=== PATIENT | female | born 1955 | race American Indian/Alaskan Native ===

== ENCOUNTER 2018-05-21 13:49 | Outpatient (CLI) | payer BC | END 2018-05-21 13:50 | disposition home or self-care (01) | LOC: LAB 13:49 | PROVIDERS: ATTEND Internal Medicine | DX: E11.9 Type 2 diabetes mellitus without complications (principal); E78.00 Pure hypercholesterolemia, unspecified | CPT/HCPCS: 36415; 83036 ==

== ENCOUNTER 2018-11-24 09:27 | Outpatient (CLI) | payer BC ==
--- NOTE | 2018-11-24 10:55 | Ultrasound Report ---
ULTRASOUND THYROID SCAN History: Iodine deficiency related diffuse goiter. Comparison: None. Findings: The thyroid gland is normal size, contour and echotexture. No evidence for enlargement or suspicious mass/cyst. No cervical adenopathy. Impression: Normal thyroid.
== END 2018-11-24 09:28 | disposition home or self-care (01) ==
LOC: US 09:27
PROVIDERS: ATTEND Internal Medicine
DX: E01.0 Iodine-deficiency related diffuse (endemic) goiter (principal); E78.00 Pure hypercholesterolemia, unspecified; Z90.49 Acquired absence of other specified parts of digestive tract
CPT/HCPCS: 76536

== ENCOUNTER 2019-04-02 08:26 | Outpatient (CLI) | payer BC ==
[2019-04-02 08:49] LABS: Basophils % (Auto) 0.5 % (0.0-1.8); Eosinophils # (Auto) 0.1 K/mm3 (0.0-0.4); Eosinophils % (Auto) 1.9 % (0.0-4.3); Hematocrit 42.2 % (30.3-42.9); Hemoglobin 14.2 gm/dl (10.1-14.3); Lymphocytes % (Auto) 28.1 % (13.4-35.0); Mean Corpuscular HGB Conc 34 % (30-34); Mean Corpuscular Volume 87 fl (79-97); Monocytes # (Auto) 0.5 K/mm3 (0.0-0.8); Monocytes % (Auto) 6.7 % (0.0-7.3); Platelet Count 233 K/mm3 (140-440); Red Blood Count 4.83 M/mm3 (3.65-5.03); Red Cell Distribution Width 13.6 % (13.2-15.2)
[2019-04-02 09:05] LABS: Alanine Aminotransferase 20 units/L (7-56); Albumin 4.7 g/dL (3.9-5); BUN/Creatinine Ratio 20; Blood Urea Nitrogen 10 mg/dL (7-17); Calcium 9.5 mg/dL (8.4-10.2); HDL Cholesterol 55 mg/dL (40-59); Hemolysis Index 6; LDL Cholesterol,Direct 129 mg/dL (50-130)
[2019-04-02 09:11] LABS: Creatinine,Urine 70.4 mg/dL (0.1-20.0)
[2019-04-02 10:08] LABS: Free T4 (Free Thyroxine) 0.95 ng/dL (0.76-1.46)
== END 2019-04-02 08:27 | disposition home or self-care (01) ==
LOC: LAB 08:26
PROVIDERS: ATTEND Internal Medicine
DX: Z13.0 Encounter for screening for diseases of the blood and blood-forming organs and certain disorders involving the immune mechanism (principal); E78.2 Mixed hyperlipidemia; E01.0 Iodine-deficiency related diffuse (endemic) goiter; E78.00 Pure hypercholesterolemia, unspecified
CPT/HCPCS: 36415; 80053; 80061; 82043; 83036; 84439; 84443; 85025

== ENCOUNTER 2019-08-02 11:53 | Outpatient (CLI) | payer BC ==
[2019-08-02 12:31] LABS: Basophils % (Auto) 0.5 % (0.0-1.8); Eosinophils # (Auto) 0.2 K/mm3 (0.0-0.4); Eosinophils % (Auto) 2.4 % (0.0-4.3); Hematocrit 40.2 % (30.3-42.9); Hemoglobin 13.5 gm/dl (10.1-14.3); Lymphocytes # (Auto) 2.1 K/mm3 (1.2-5.4); Lymphocytes % (Auto) 30.8 % (13.4-35.0); Mean Corpuscular HGB Conc 34 % (30-34); Mean Corpuscular Volume 86 fl (79-97); Monocytes # (Auto) 0.6 K/mm3 (0.0-0.8); Monocytes % (Auto) 8.1 % (0.0-7.3); Platelet Count 205 K/mm3 (140-440); Red Blood Count 4.68 M/mm3 (3.65-5.03); Red Cell Distribution Width 13.2 % (13.2-15.2)
[2019-08-02 12:56] LABS: BUN/Creatinine Ratio 26; Blood Urea Nitrogen 13 mg/dL (7-17); Calcium 9.5 mg/dL (8.4-10.2); Hemolysis Index 4
--- NOTE | 2019-08-02 13:41 | XRay Report ---
CHEST 2 VIEWS INDICATION: R05)COUGH/. COMPARISON: None. FINDINGS: Support devices: None. Heart: Within normal limits. Pulmonary vasculature: Normal. Lungs/pleura: Lungs are normally expanded and clear except for a few tiny calcified granulomata. No a irspace disease or pleural effusion. No pneumothorax. Additional findings: Dextroscoliosis and exaggerated thoracic kyphosis. No spine fracture. IMPRESSION: No acute cardiopulmonary process. Old granulomatous disease. Signer Name: Donnell Urrutia MD Signed: 08/02/2019 1:37 PM Workstation Name: [id number]
--- NOTE | 2019-08-02 14:29 | XRay Report ---
Thoracic spine, 2 views INDICATION: M54.6)Pain in thoracic spine. COMPARISON: None. IMPRESSION: There is mild dextro curvature in the mid to lower thoracic spine. Moderate degenerative disc disease is noted in the mid thoracic spine. No evidence for compression deformity, subluxation or bone lesion. No acute osseous or soft tissue abnormality. Signer Name: Randy aGrcia Jr, MD Signed: 08/02/2019 2:24 PM Workstation Name: [id number]
[2019-08-05 11:51] LABS: Vitamin D, 25-OH, D2 <4 ng/mL
== END 2019-08-02 11:54 | disposition home or self-care (01) ==
LOC: XRAY 11:53
PROVIDERS: ATTEND Internal Medicine
DX: M47.814 Spondylosis without myelopathy or radiculopathy, thoracic region (principal); M43.8X4 Other specified deforming dorsopathies, thoracic region; M40.294 Other kyphosis, thoracic region; R73.03 Prediabetes; E55.9 Vitamin D deficiency, unspecified; L92.8 Other granulomatous disorders of the skin and subcutaneous tissue; E78.00 Pure hypercholesterolemia, unspecified
CPT/HCPCS: 36415; 71046; 72072; 80048; 82306; 83036; 85025

== ENCOUNTER 2019-08-12 11:58 | Outpatient (CLI) | payer BC ==
--- NOTE | 2019-08-12 16:13 | Mammography Report ---
BONE DEXA CLINICAL: Postmenopausal. COMPARISON: 01/02/2015 TECHNIQUE: 3 site bone DEXA performed on an Hologic scanner. FINDINGS: The average BMD of the lumbar spine L1-L4 is 0.790g/cm squared with a T score of -2.3 and a Z score o f -1.5. This compares to 0.841g/cm squared on the last exam and represents a -6.1 % change from the [ previous baseline]. The average BMD of the left hip is 0.902 g/cm squared with a T score of -0.3and a Z score of +0.1. Th is compares to 0.921 g/cm squared on the last exam and represents a -2.0 % change from the [previous baseline]. The left femoral neck BMD is 0.703 g/cm squared with a T score of -1.3 and a Z score of -0.6. IMPRESSION: 1. WHO classification: Osteopenia with increased fracture risk based on spine and total left hip bridgett urements. 2. WHO classification Osteopenia with increased fracture risk based on left femoral neck measurements . RECOMMENDATION: Clinical correlation and routine screening. Definitions: BMD equal bone mineral density T score = BMD related to peak bone mass of young adult ([place] expressed an standard deviation) Z score = age-matched BMD expressed in SD World health organization (WHO) diagnostic criteria Normal T score greater than equal to 1 standard deviation Osteopenia T score between -1 and -2.4 standard deviation Osteoporosis T score -2.5 standard deviation or below. Note: BMD is not the only risk factor for fracture; also consider factors such as the patient's age, risk of falling, previous osteoporotic fracture, family history of osteoporotic fractures, current sm oker and low body weight. Z scores are not calculated if greater than 80 years of age. Signer Name: Donnell Urrutia MD Signed: 08/12/2019 4:09 PM Workstation Name: [id number]
== END 2019-08-12 11:59 | disposition home or self-care (01) ==
LOC: MAMMO 11:58
PROVIDERS: ATTEND Internal Medicine
DX: M85.89 Other specified disorders of bone density and structure, multiple sites (principal); R05 Cough; M54.6 Pain in thoracic spine; E78.00 Pure hypercholesterolemia, unspecified; Z78.0 Asymptomatic menopausal state
CPT/HCPCS: 77080

== ENCOUNTER 2019-08-18 07:02 | Outpatient (CLI) | payer BC ==
--- NOTE | 2019-08-19 01:54 | Treadmill Report ---
EXERCISE TREADMILL TEST Resting EKG sinus bradycardia, rate 58 beats per minute, nonspecific T-wave abnormality, abnormal ECG. Exercise test; the patient exercised for a total of 6 minutes and 38 seconds on the Melvin protocol achieving a maximum workload of 7.7 METs. Test was terminated because of fatigue and dyspnea. No chest pain. The patient's resting heart rate was 58 beats per minute and resting blood pressure was 116/69. The patient's peak heart rate was 143 beats per minute, which was 84% of the predicted maximum heart rate. Peak blood pressure was 168/81 mmHg. The patient showed nonspecific ST-T abnormalities and baseline artifact at peak exercise. However, the patient was noted to have T-wave inversion about 3 minutes into the recovery phase, the anterior and inferior leads suggesting ischemia. CONCLUSION: Moderate exercise capacity. Negative test for angina. Ischemia could not be evaluated because of the preexisting ST-T abnormalities. Suggest clinical correlation and consider nuclear stress test if indicated. JOB# [id number] KEO/AMBAR
== END 2019-08-18 07:03 | disposition home or self-care (01) ==
LOC: ECHO 07:02
PROVIDERS: ATTEND Specialist
DX: R94.31 Abnormal electrocardiogram [ECG] [EKG] (principal); E78.49 Other hyperlipidemia; Z82.49 Family history of ischemic heart disease and other diseases of the circulatory system; E11.9 Type 2 diabetes mellitus without complications
CPT/HCPCS: 93017; 93306

== ENCOUNTER 2020-02-18 09:43 | Outpatient (CLI) | payer BC ==
[2020-02-18 10:16] LABS: Basophils # (Auto) 0.1 K/mm3 (0.0-0.1); Basophils % (Auto) 0.7 % (0.0-1.8); Eosinophils # (Auto) 0.1 K/mm3 (0.0-0.4); Eosinophils % (Auto) 1.7 % (0.0-4.3); Hematocrit 43.3 % (30.3-42.9); Hemoglobin 14.3 gm/dl (10.1-14.3); Lymphocytes # (Auto) 2.2 K/mm3 (1.2-5.4); Lymphocytes % (Auto) 26.7 % (13.4-35.0); Mean Corpuscular HGB Conc 33 % (30-34); Mean Corpuscular Volume 87 fl (79-97); Monocytes # (Auto) 0.6 K/mm3 (0.0-0.8); Monocytes % (Auto) 7.1 % (0.0-7.3); Platelet Count 256 K/mm3 (140-440); Red Cell Distribution Width 13.6 % (13.2-15.2)
[2020-02-18 10:33] LABS: Bilirubin,Urine NEG (Negative); Blood,Urine NEG (Negative); Color,Urine Colorless (Yellow); Protein,Urine <15 mg/dL mg/dL (Negative); RBC,Urine < 1.0 /HPF (0.0-6.0); Urobilinogen,Urine < 2.0 mg/dL (<2.0); WBC,Urine < 1.0 /HPF (0.0-6.0)
[2020-02-18 10:51] LABS: Alanine Aminotransferase 25 units/L (7-56); Albumin 4.8 g/dL (3.9-5); BUN/Creatinine Ratio 18; Blood Urea Nitrogen 11 mg/dL (7-17); Calcium 10.4 mg/dL (8.4-10.2); Chol/HDL Ratio 2.78 %; HDL Cholesterol 64 mg/dL (40-59); Hemolysis Index 18; LDL Cholesterol,Direct 114 mg/dL (50-130)
[2020-02-18 13:56] LABS: Creatinine,Urine 20.4 mg/dL (0.1-20.0)
[2020-02-18 14:06] LABS: Microalbumin/Creatinine Ratio 58.8 ug/mg
[2020-02-21 10:43] LABS: Vitamin D, 25-OH, D2 <4 ng/mL
== END 2020-02-18 09:44 | disposition home or self-care (01) ==
LOC: LAB 09:43
PROVIDERS: ATTEND Internal Medicine
DX: Z00.00 Encounter for general adult medical examination without abnormal findings (principal); Z13.0 Encounter for screening for diseases of the blood and blood-forming organs and certain disorders involving the immune mechanism; Z12.11 Encounter for screening for malignant neoplasm of colon; E55.9 Vitamin D deficiency, unspecified; E11.9 Type 2 diabetes mellitus without complications; E78.2 Mixed hyperlipidemia
CPT/HCPCS: 36415; 80053; 80061; 81001; 82043; 82306; 83036; 85025; 87086

== ENCOUNTER 2020-08-23 20:05 | Inpatient (IN) | payer BC ==
[2020-08-23 21:26] LABS: Hematocrit 38.8 % (30.3-42.9); Hemoglobin 12.9 gm/dl (10.1-14.3); Mean Corpuscular HGB Conc 33 % (30-34); Mean Corpuscular Volume 86 fl (79-97); Platelet Count 196 K/mm3 (140-440); Red Blood Count 4.49 M/mm3 (3.65-5.03); Red Cell Distribution Width 13.3 % (13.2-15.2)
[2020-08-23 21:27] LABS: Lymphocytes % (Auto) 20.2 % (13.4-35.0)
[2020-08-23 21:28] LABS: Basophils % (Auto) 0.5 % (0.0-1.8); Lymphocytes # (Auto) 1.3 K/mm3 (1.2-5.4); Monocytes # (Auto) 0.6 K/mm3 (0.0-0.8); Monocytes % (Auto) 9.6 % (0.0-7.3)
[2020-08-23 21:43] LABS: Blood Urea Nitrogen 7 mg/dL (7-17); Calcium 9.1 mg/dL (8.4-10.2); Hemolysis Index 53
[2020-08-23 21:44] LABS: BUN/Creatinine Ratio 14
--- NOTE | 2020-08-23 21:48 | XRay Report ---
CHEST 1 VIEW INDICATION / CLINICAL INFORMATION: Covid +AMANDA. COMPARISON: 08/02/2019 FINDINGS: SUPPORT DEVICES: None. HEART / MEDIASTINUM: Stable. LUNGS / PLEURA: When compared to the prior radiograph from 08/02/2019, there is focal increased hazine ss in the lateral aspect of the left lower lung. Right lung is clear. No pneumothorax. ADDITIONAL FINDINGS: No significant additional findings. IMPRESSION: 1. Hazy infiltrative opacity in the left lower lung possibly representing developing pneumonia. Recom mend clinical correlation and continued follow-up until resolution. Signer Name: Kalia Rangel MD Signed: 08/23/2020 9:43 PM Workstation Name: [id number]
[2020-08-23] MEDS ORDERED: cefTRIAXone/NS 2 GM/100 ML 2 GM/100 ML BAG IV STA (22:11)
[2020-08-23] MEDS ORDERED: AZITHROMYCIN 500 MG in SODIUM CHLORIDE 0.9% 250ML 250 ML IV SCH (22:11)
--- NOTE | 2020-08-23 22:21 | Emergency Department Report ---
ED General Adult HPI - General Chief complaint: Medical Clearance Stated complaint: COVID EXPOSURE Time Seen by Provider: 08/23/20 20:54 Source: patient Mode of arrival: Ambulatory Limitations: No Limitations - History of Present Illness Initial comments: 65-year-old -[place]ese prediabetes female presents emergency department complaining shortness of breath cough congestion and fatigue. States she was diagnosed with COVID-19 about 6 days ago with her primary care provider and since that time has been having continued aches and pains with malaise and coryza and associated exertional dyspnea and chest discomfort off and on with no improvement. Ports no hemoptysis no hematemesis no hematochezia. No diarrhea no constipation no rashes. She is been taken over the counter Tylenol to try to alleviate her symptoms but no other treatment. She did contact her primary care provider for third time seeking further guidance for her symptoms and was advised to come to the emergency department for further evaluation and treatment options. States she was evaluated by primary care provider 2 other times with no symptomatic improvement - Related Data Allergies Allergy/AdvReac Type Severity Reaction Status Date / Time No Known Allergies Allergy Unverified 08/23/20 20:16 ED Review of Systems ROS: Stated complaint: COVID EXPOSURE Other details as noted in HPI ED Past Medical Hx - Past Medical History Previous Medical History?: Yes Hx Diabetes: Yes (Pre) Additional medical history: cholesterol - Surgical History Past Surgical History?: Yes Hx Appendectomy: Yes Additional Surgical History: Tubal - Social History Smoking Status: Never Smoker Substance Use Type: None ED Physical Exam - General Limitations: No Limitations General appearance: alert, in no apparent distress - Head Head exam: Present: atraumatic, normocephalic - Eye Eye exam: Present: normal appearance, PERRL - ENT ENT exam: Present: mucous membranes moist - Neck Neck exam: Present: normal inspection - Respiratory Respiratory exam: Absent: respiratory distress, accessory muscle use - Cardiovascular Cardiovascular Exam: Present: regular rate, normal rhythm. Absent: systolic murmur, diastolic murmur, rubs, gallop - GI/Abdominal GI/Abdominal exam: Absent: distended - Extremities Exam Extremities exam: Present: normal inspection - Back Exam Back exam: Present: normal inspection - Neurological Exam Neurological exam: Present: alert, oriented X3, CN II-XII intact - Psychiatric Psychiatric exam: Present: normal affect, normal mood - Skin Skin exam: Present: warm, dry, intact, normal color. Absent: rash ED Course Vital Signs 08/23/20 20:11 Temperature 99.2 F Pulse Rate 104 H Respiratory 18 Rate Blood Pressure 144/89 O2 Sat by Pulse 94 Oximetry - Consultations Consultation #1: 08/23/20 22:35 Discussed the case with hospitalist for admission home he came to the emergency department to evaluate the patient see his note for more detail Dr. Rapp ED Medical Decision Making - Lab Data Result diagrams: 08/23/20 21:07 08/23/20 21:07 - Radiology Data Radiology results: report reviewed [facility] [address] [place] [address] XRay Report Signed Patient: MAAME RESTREPO MR#: [id number] : 1955 Acct:[id number] Age/Sex: 65 / F ADM Date: 08/23/20 Loc: ED Attending Dr: Ordering Physician: ED MD HUONG Date of Service: 08/23/20 Procedure(s): XR chest 1V ap Accession Number(s): [id number] cc: ED DOCMD Fluoro Time In Minutes: CHEST 1 VIEW INDICATION / CLINICAL INFORMATION: Covid +AMANDA. COMPARISON: 08/02/2019 FINDINGS: SUPPORT DEVICES: None. HEART / MEDIASTINUM: Stable. LUNGS / PLEURA: When compared to the prior radiograph from 08/02/2019, there is focal increased haziness in the lateral aspect of the left lower lung. Right lung is clear. No pneumothorax. ADDITIONAL FINDINGS: No significant additional findings. IMPRESSION: 1. Hazy infiltrative opacity in the left lower lung possibly representing developing pneumonia. Recommend clinical correlation and continued follow-up until resolution. Signer Name: Karlee Rangel MD Signed: 08/23/2020 9:43 PM Workstation Name: [id number] Transcribed By: RH Dictated By: KARLEE RANGEL III Electronically Authenticated By: KARLEE RANGEL III Signed Date/Time: 08/23/202142 DD/ 40 TD/TT: - Medical Decision Making Patient presentation suspicious for COVID-19 infection patient requires admission for the symptoms including tachycardia, chest pain, shortness of breath, exertional dyspnea and exertional hypoxemia. Differential diagnosis includes other viral causes of lower respiratory tract infection, pneumonia, less likely PE, pneumothorax, primary cardiovascular causes, bacterial sepsis, other severe metabolic/ischemic derangements. Will swab for COVID-19 placed in hands precautions and admit to medicine. 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 Started her on the community-acquired pneumonia antimicrobial regimen and coronavirus cocktail and reevaluation with PCR Critical care attestation.: If time is entered above; I have spent that time in minutes in the direct care of this critically ill patient, excluding procedure time. ED Disposition Clinical Impression: Pneumonia, COVID-19, Hypoxemia Disposition: DC09 OP ADMIT IP TO THIS HOSP Is pt being admited?: Yes Does the pt Need Aspirin: No Condition: Stable Instructions: Bacterial Pneumonia (ED)
[2020-08-23 22:59] LABS: C-Reactive Protein 4.8 mg/dL (0.00-1.30)
[2020-08-23] MEDS ORDERED: cefTRIAXone/NS 2 GM/100 ML 2 GM/100 ML BAG IV ONE (23:20)
[2020-08-23] MEDS ORDERED: MAGNESIUM HYDROXIDE (MOM) ORAL LIQD UDC PO PRN (23:24)
[2020-08-23] MEDS ORDERED: ONDANSETRON 4 MG/2 ML INJ IV PRN (23:24)
[2020-08-23] MEDS ORDERED: MORPHINE 2 MG/1 ML INJ IV PRN (23:24)
--- NOTE | 2020-08-23 23:34 | History and Physical Report ---
History of Present Illness Date of examination: 08/23/20 Date of admission: 08/23/20 22:31 Chief complaint: Headache Fatigue Cough History of present illness: 65-year-old female with known history of hyperlipidemia presenting to the emergency room today complaining of cough congestion and also generalized fatigue.. She indicates she was diagnosed with COVID-19 about a week ago and since then she has been having continuous body aches and pain, exertional dyspnea and intermittent chest discomfort. Patient has been taking [id number] acetaminophen without any improvement. She eventually contacted her primary care physician who encouraged her to report to the emergency room for further evaluation. Work-up in the emergency room today reveals a left upper lobe pneumonia. Patient became slightly hypoxic with minimal exertion upon arrival in the emerge ncy room. She has been started on empiric IV antibiotics and also placed on isolation precautions. Past History Past Medical History: hyperlipidemia Past Surgical History: Other (Tubal Ligation) Social history: no significant social history Family history: no significant family history Medications and Allergies Allergies Allergy/AdvReac Type Severity Reaction Status Date / Time No Known Allergies Allergy Unverified 08/23/20 20:16 Home Medications Medication Instructions Recorded Confirmed Last Taken Type Simvastatin 40 mg PO QHS 08/24/20 08/24/20 Unknown History metFORMIN [Glucophage] 500 mg PO QDAY 08/24/20 08/24/20 Unknown History Active Meds: Active Medications Acetaminophen (Tylenol) 650 mg PO Q4H PRN PRN Reason: Pain MILD(1-3)/Fever >100.5/KHAN Enoxaparin Sodium (Enoxaparin) 40 mg SUB-Q QDAY@2200 MAYNOR; Protocol Azithromycin 500 mg/ Sodium (Chloride) 250 mls @ 250 mls/hr IV Q24HR MAYNOR; Protocol Sodium Chloride (Nacl 0.9% 1000 Ml) 1,000 mls @ 75 mls/hr IV DIRECT MAYNOR Magnesium Hydroxide (Milk Of Magnesia) 30 ml PO Q4H PRN PRN Reason: Constipation Morphine Sulfate (Morphine) 2 mg IV Q4H PRN PRN Reason: Pain, Moderate (4-6) Ondansetron HCl (Zofran) 4 mg IV Q8H PRN PRN Reason: Nausea And Vomiting Sodium Chloride (Sodium Chloride Flush Syringe 10 Ml) 10 ml IV BID MAYNOR Sodium Chloride (Sodium Chloride Flush Syringe 10 Ml) 10 ml IV PRN PRN PRN Reason: LINE FLUSH Review of Systems Constitutional: fever, chills, fatigue Ears, nose, mouth and throat: nasal congestion, no sore throat Cardiovascular: no chest pain, no palpitations Respiratory: cough, shortness of breath Gastrointestinal: no abdominal pain, no nausea, no vomiting, no diarrhea Genitourinary Female: no pelvic pain, no flank pain, no dysuria, no hematuria Musculoskeletal: no neck pain, no low back pain Integumentary: no rash, no pruritis Neurological: no headaches, no confusion Psychiatric: no anxiety, no depression Exam - Constitutional Vitals: Temp Pulse Resp BP Pulse Ox 99.2 F 104 H 18 144/89 94 08/23/20 20:11 08/23/20 20:11 08/23/20 20:11 08/23/20 20:11 08/23/20 20:11 General appearance: Present: no acute distress, well-nourished - EENT Eyes: Present: PERRL, EOM intact. Absent: scleral icterus ENT: hearing intact, clear oral mucosa, dentition normal - Neck Neck: Present: supple, normal ROM - Respiratory Respiratory effort: normal Respiratory: bilateral: diminished - Cardiovascular Rhythm: regular Heart Sounds: Present: S1 & S2. Absent: gallop, systolic murmur, diastolic murmur, rub - Extremities Extremities: no ischemia, pulses intact, pulses symmetrical, No edema, Full ROM Peripheral Pulses: within normal limits - Abdominal General gastrointestinal: Present: soft, non-tender, non-distended, normal bowel sounds. Absent: mass - Integumentary Integumentary: Absent: clear, warm, dry, rash - Musculoskeletal Musculoskeletal: strength equal bilaterally - Psychiatric Psychiatric: appropriate mood/affect, intact judgment & insight, memory intact, cooperative - Neurologic Neurologic: CNII-XII intact, no focal deficits, moves all extremities Results - Labs CBC & Chem 7: 08/23/20 21:07 08/23/20 21:07 Labs: Abnormal lab results 08/23/20 08/23/20 08/23/20 Range/Units 21:07 21:07 21:07 [place] % (Auto) 9.6 H (0.0-7.3) % D-Dimer 238.26 H (0-234) ng/mlDDU Creatinine 0.5 L (0.6-1.2) mg/dL Glucose 139 H (65-100) mg/dL Ferritin (10.0-200.0) ng/mL Lactate Dehydrogenase (91-180) units/L C-Reactive Protein (0.00-1.30) mg/dL 08/23/20 08/23/20 Range/Units 21:07 21:07 [place] % (Auto) (0.0-7.3) % D-Dimer (0-234) ng/mlDDU Creatinine (0.6-1.2) mg/dL Glucose 136 H (65-100) mg/dL Ferritin 283.9 H (10.0-200.0) ng/mL Lactate Dehydrogenase 286 H (91-180) units/L C-Reactive Protein 4.80 H (0.00-1.30) mg/dL Assessment and Plan - Patient Problems (1) Pneumonia Current Visit: Yes Status: Acute Plan to address problem: Patient placed on empiric IV antibiotics. We await culture results. (2) COVID-19 Current Visit: Yes Status: Acute Plan to address problem: Consult placed to infectious disease for evaluation and recommendation. Patient placed on isolation precautions. (3) Hypoxemia Current Visit: Yes Status: Acute Plan to address problem: We will keep O2 saturation greater or equal to 94%. We will consider placing patient on IV steroid if needed.. (4) DVT prophylaxis Current Visit: Yes Status: Acute Plan to address problem: Patient placed on subcutaneous Lovenox. (5) Full code status Current Visit: Yes Status: Acute
[2020-08-23] MEDS ORDERED: ACETAMINOPHEN 325 MG TAB ONE (23:41)
[2020-08-23] MEDS: ACETAMINOPHEN 325 MG TAB PO PRN (23:43)
[2020-08-24] MEDS: SODIUM CHLORIDE 0.9% 1000 ML 1,000 ML IV SCH ×2 (01:32→16:23)
[2020-08-24] MEDS: guaiFENesin 100 MG/5 ML ORAL LIQD PO PRN ×4 (02:49→22:44)
[2020-08-24] MEDS: ACETAMINOPHEN 325 MG TAB PO PRN ×2 (07:33→15:00)
[2020-08-24 07:58] LABS: Basophils % (Auto) 0.3 % (0.0-1.8); Eosinophils % (Auto) 0.1 % (0.0-4.3); Hematocrit 37.8 % (30.3-42.9); Hemoglobin 12.9 gm/dl (10.1-14.3); Lymphocytes # (Auto) 1.3 K/mm3 (1.2-5.4); Lymphocytes % (Auto) 23.5 % (13.4-35.0); Mean Corpuscular HGB Conc 34 % (30-34); Mean Corpuscular Volume 86 fl (79-97); Monocytes # (Auto) 0.6 K/mm3 (0.0-0.8); Monocytes % (Auto) 11.2 % (0.0-7.3); Platelet Count 191 K/mm3 (140-440); Red Blood Count 4.42 M/mm3 (3.65-5.03); Red Cell Distribution Width 13.4 % (13.2-15.2)
[2020-08-24 08:14] LABS: INR 1.05 (0.87-1.13)
[2020-08-24 08:20] LABS: Blood Urea Nitrogen 5 mg/dL (7-17); Calcium 8.6 mg/dL (8.4-10.2); Hemolysis Index 9
[2020-08-24 08:26] LABS: BUN/Creatinine Ratio 8
[2020-08-24] MEDS ORDERED: AZITHROMYCIN 500 MG in SODIUM CHLORIDE 0.9% 250ML 250 ML IV SCH (10:00)
[2020-08-24] MEDS ORDERED: cefTRIAXone/NS 2 GM/100 ML 2 GM/100 ML BAG IV SCH ×2 (10:00→22:00)
--- NOTE | 2020-08-24 14:40 | Consultation ---
History of Present Illness - Reason for Consult Consult date: 08/24/20 - History of Present Illness 65 yo F PMHx HLD presented to the hospital complaining of cough fatigue. She also reports associated myalgias and exertional dyspnea. She reports that she was diagnosed with COVID approximately 1 weeks prior to admission. She was recommended t come to the hospital by her PCP. She was noted to be hypoxic in the ER. Febrile to 101.5 with a normal white count. Currently receiving ceftriaxone and azithromycin. No cultures for review. Procalcitonin is normal. Imaging personally reviewed: CXR: LLL opacity. Review of Systems: Bold if positive, otherwise negative General: fevers, chills, rigors HEENT: visual disturbance, diplopia, eye pain Respiratory: cough, sputum, hemoptysis, shortness of breath Cardiovascular: chest pain, syncope Gastrointestinal: nausea, vomiting, diarrhea, abdominal pain Genitourinary: dysuria, hematuria, flank pain Musculoskeletal: neck pain, back pain, joint pain, edema Neurologic: headaches, seizures Hematologic: easy bruising or bleeding Endocrine: night sweats, acute weight loss Skin: rash, jaundice, redness Psychiatric: suicidal, homicidal ideation Past History Past Medical History: hyperlipidemia Past Surgical History: Other (Tubal Ligation) Social history: no significant social history Family history: no significant family history Medications and Allergies Allergies Allergy/AdvReac Type Severity Reaction Status Date / Time No Known Allergies Allergy Unverified 08/23/20 20:16 Home Medications Medication Instructions Recorded Confirmed Last Taken Type Simvastatin 40 mg PO QHS 08/24/20 08/24/20 Unknown History metFORMIN [Glucophage] 500 mg PO QDAY 08/24/20 08/24/20 Unknown History Active Meds: Active Medications Acetaminophen (Tylenol) 650 mg PO Q4H PRN PRN Reason: Pain MILD(1-3)/Fever >100.5/KHAN Last Admin: 08/24/20 07:33 Dose: 650 mg Documented by: Azithromycin (Zithromax) 500 mg PO QHS MAYNOR Stop: 08/27/20 22:01 Enoxaparin Sodium (Enoxaparin) 40 mg SUB-Q QDAY@2200 MAYNOR; Protocol Guaifenesin (Robitussin) 200 mg PO Q4H PRN PRN Reason: Cough Last Admin: 08/24/20 07:33 Dose: 200 mg Documented by: Sodium Chloride (Nacl 0.9% 1000 Ml) 1,000 mls @ 75 mls/hr IV DIRECT MAYNOR Last Admin: 08/24/20 01:32 Dose: 75 mls/hr Documented by: Ceftriaxone Sodium (Rocephin/Ns 2 Gm/100 Ml) 2 gm in 100 mls @ 200 mls/hr IV Q24HR@2200 MAYNOR; Protocol Magnesium Hydroxide (Milk Of Magnesia) 30 ml PO Q4H PRN PRN Reason: Constipation Morphine Sulfate (Morphine) 2 mg IV Q4H PRN PRN Reason: Pain, Moderate (4-6) Ondansetron HCl (Zofran) 4 mg IV Q8H PRN PRN Reason: Nausea And Vomiting Sodium Chloride (Sodium Chloride Flush Syringe 10 Ml) 10 ml IV BID MAYNOR Last Admin: 08/24/20 09:06 Dose: 10 ml Documented by: Sodium Chloride (Sodium Chloride Flush Syringe 10 Ml) 10 ml IV PRN PRN PRN Reason: LINE FLUSH Last Admin: 08/24/20 09:03 Dose: 10 ml Documented by: Physical Examination - Physical Exam Narrative exam: Physical exam deferred due to PPE conservation strategy. Please refer to primary team's note. - Constitutional Vitals: Vital Signs Temp Pulse Resp BP Pulse Ox 99.5 F 91 H 20 104/59 95 08/24/20 12:08 08/24/20 12:08 08/24/20 12:08 08/24/20 12:08 08/24/20 12:08 Temperature -Last 24 Hours Temperature 99.5 F Temperature 100.9 F Temperature 99.2 F Temperature 101.5 F Temperature 99.2 F Results - Labs CBC & Chem 7: 08/24/20 07:20 08/24/20 07:20 Labs: Abnormal lab results 08/23/20 08/23/20 08/23/20 Range/Units 21:07 21:07 21:07 [place] % (Auto) 9.6 H (0.0-7.3) % D-Dimer 238.26 H (0-234) ng/mlDDU Potassium (3.6-5.0) mmol/L BUN (7-17) mg/dL Creatinine 0.5 L (0.6-1.2) mg/dL Glucose 139 H (65-100) mg/dL POC Glucose (70-105) mg/dL Ferritin (10.0-200.0) ng/mL Lactate Dehydrogenase (91-180) units/L C-Reactive Protein (0.00-1.30) mg/dL 08/23/20 08/23/20 08/24/20 Range/Units 21:07 21:07 07:20 [place] % (Auto) 11.2 H (0.0-7.3) % D-Dimer (0-234) ng/mlDDU Potassium (3.6-5.0) mmol/L BUN (7-17) mg/dL Creatinine (0.6-1.2) mg/dL Glucose 136 H (65-100) mg/dL POC Glucose (70-105) mg/dL Ferritin 283.9 H (10.0-200.0) ng/mL Lactate Dehydrogenase 286 H (91-180) units/L C-Reactive Protein 4.80 H (0.00-1.30) mg/dL 08/24/20 08/24/20 Range/Units 07:20 12:22 [place] % (Auto) (0.0-7.3) % D-Dimer (0-234) ng/mlDDU Potassium 3.5 L D (3.6-5.0) mmol/L BUN 5 L (7-17) mg/dL Creatinine (0.6-1.2) mg/dL Glucose (65-100) mg/dL POC Glucose 150 H (70-105) mg/dL Ferritin (10.0-200.0) ng/mL Lactate Dehydrogenase (91-180) units/L C-Reactive Protein (0.00-1.30) mg/dL Assessment and Plan Cultures: None A/P: 65 yo F PMHx HLD admitted with hypoxia secondary to COVID PNA. #Acute hypoxemic respiratory failure: Likely secondary to COVID-19 infection. Currently on nasal cannula #COVID-19 pneumonia: Patient presented with a week of symptoms, chest x-ray with LLL infiltrate. Recs: -Continue Dexamethasone 6 mg IV/PO daily for 10 days -Start Remdesivir 200 mg IV q day x 1 followed by 100 mg IV q day x 4 days. Patient verbally consented. CrCl>30. Pharmacy notified. Monitor renal and hepatic function. D1 of 5. -Obtain q48h inflammatory markers - ferritin, Ddimer, CRP, LDH -Stopped antibiotics due to normal procalcitonin. -Anticoagulation per hospital protocol -Proning as able Thank you for the consult, we will continue to follow. Albina Medley MD [facility] O: [phone] F: [phone]
[2020-08-24] MEDS ORDERED: REMDESIVIR 100 MG VIAL IV ONE (16:00)
[2020-08-24] MEDS ORDERED: REMDESIVIR 200 MG in SODIUM CHLORIDE 0.9% 250ML 250 ML IV ONE (16:00)
[2020-08-24] MEDS: DEXAMETHASONE 4 MG TAB PO SCH (16:23)
[2020-08-24] MEDS: SODIUM CHLORIDE 0.9% 50 ML IVPB IV SCH (18:05)
--- NOTE | 2020-08-24 20:31 | Progress Note ---
Assessment and Plan - Patient Problems (1) Pneumonia Current Visit: Yes Status: Acute Plan to address problem: Patient placed on empiric IV antibiotics. We await culture results. (2) COVID-19 Current Visit: Yes Status: Acute Plan to address problem: Covid positive (3) Hypoxemia Current Visit: Yes Status: Acute Plan to address problem: We will keep O2 saturation greater or equal to 94%. We will consider placing patient on IV steroid if needed.. (4) DVT prophylaxis Current Visit: Yes Status: Acute Plan to address problem: Patient placed on subcutaneous Lovenox. (5) Full code status Current Visit: Yes Status: Acute Subjective Date of service: 08/24/20 Principal diagnosis: Pneumonia--rule out COVID-19 positive test (U07.1, COVID- 19) with Acute P Interval history: 65-year-old female with known history of hyperlipidemia presenting to the emergency room today complaining of cough congestion and also generalized fatigue.. She indicates she was diagnosed with COVID-19 about a week ago and since then she has been having continuous body aches and pain, exertional dyspnea and intermittent chest discomfort. Patient has been taking ktrt-ssq-bpndpkm acetaminophen without any improvement. She eventually contacted her primary care physician who encouraged her to report to the emergency room for further evaluation. Work-up in the emergency room today reveals a left upper lobe pneumonia. Patiari t became slightly hypoxic with minimal exertion upon arrival in the emergency room. She has been started on empiric IV antibiotics and also placed on isolation precautions. Day #3 08/24/2020 Patient has pneumonia secondary to coronavirus which is positive Objective - Constitutional Vitals: Vital Signs - 12hr 08/24/20 08/24/20 12:08 16:10 Temperature 99.5 F 99.9 F H Pulse Rate 91 H 94 H Respiratory 20 18 Rate Blood Pressure 104/59 115/72 O2 Sat by Pulse 95 96 Oximetry General appearance: Present: no acute distress, well-nourished - EENT Eyes: PERRL, EOM intact ENT: hearing intact, clear oral mucosa Ears: bilateral: normal - Neck Neck: supple, normal ROM - Respiratory Respiratory effort: normal Respiratory: bilateral: CTA, rhonchi - Breasts Breasts: normal - Cardiovascular Rhythm: regular Heart Sounds: Present: S1 & S2. Absent: gallop, rub Extremities: pulses intact, No edema, normal color, Full ROM - Gastrointestinal General gastrointestinal: Present: soft, non-tender, non-distended, normal bowel sounds - Genitourinary Female genitourinary: normal - Integumentary Integumentary: clear, warm, dry - Musculoskeletal Musculoskeletal: 1, strength equal bilaterally - Neurologic Neurologic: moves all extremities - Psychiatric Psychiatric: memory intact, appropriate mood/affect, intact judgment & insight - Labs CBC & Chem 7: 08/24/20 07:20 08/24/20 07:20 Labs: Abnormal lab results 08/23/20 08/23/20 08/23/20 Range/Units 21:07 21:07 21:07 [place] % (Auto) 9.6 H (0.0-7.3) % D-Dimer 238.26 H (0-234) ng/mlDDU Potassium (3.6-5.0) mmol/L BUN (7-17) mg/dL Creatinine 0.5 L (0.6-1.2) mg/dL Glucose 139 H (65-100) mg/dL POC Glucose (70-105) mg/dL Ferritin (10.0-200.0) ng/mL Lactate Dehydrogenase (91-180) units/L C-Reactive Protein (0.00-1.30) mg/dL Coronavirus (PCR) (Negative) 08/23/20 08/23/20 08/24/20 Range/Units 21:07 21:07 07:20 [place] % (Auto) 11.2 H (0.0-7.3) % D-Dimer (0-234) ng/mlDDU Potassium (3.6-5.0) mmol/L BUN (7-17) mg/dL Creatinine (0.6-1.2) mg/dL Glucose 136 H (65-100) mg/dL POC Glucose (70-105) mg/dL Ferritin 283.9 H (10.0-200.0) ng/mL Lactate Dehydrogenase 286 H (91-180) units/L C-Reactive Protein 4.80 H (0.00-1.30) mg/dL Coronavirus (PCR) (Negative) 08/24/20 08/24/20 08/24/20 Range/Units 07:20 10:00 12:22 [place] % (Auto) (0.0-7.3) % D-Dimer (0-234) ng/mlDDU Potassium 3.5 L D (3.6-5.0) mmol/L BUN 5 L (7-17) mg/dL Creatinine (0.6-1.2) mg/dL Glucose (65-100) mg/dL POC Glucose 150 H (70-105) mg/dL Ferritin (10.0-200.0) ng/mL Lactate Dehydrogenase (91-180) units/L C-Reactive Protein (0.00-1.30) mg/dL Coronavirus (PCR) Positive A (Negative) Chest x-ray Hazy infiltrative opacity of the left lower lung possibly representing developing pneumonia. Recommend clinical correlation and continued follow-up until resolution.
[2020-08-24] MEDS ORDERED: AZITHROMYCIN 250 MG TAB PO SCH (22:00)
[2020-08-24] MEDS: ENOXAPARIN 40 MG/0.4 ML INJ SUB-Q SCH (22:29)
[2020-08-25] MEDS: guaiFENesin 100 MG/5 ML ORAL LIQD PO PRN ×2 (05:04→21:06)
--- NOTE | 2020-08-25 07:58 | Progress Note ---
Assessment and Plan - Patient Problems (1) Diabetes Current Visit: Yes Status: Acute Plan to address problem: We will try to hold metformin since patient is receiving remdesivir. Can treat with sliding scale as well as Glucotrol. (2) COVID-19 Current Visit: Yes Status: Acute Plan to address problem: Covid positive patient with symptoms of hypoxemia resolving. Continue with decimeter for 3 more days. (3) Full code status Current Visit: Yes Status: Acute (4) Hypoxemia Current Visit: Yes Status: Acute Plan to address problem: Secondary to COVID-19 pneumonia resolving. (5) Pneumonia Current Visit: Yes Status: Acute Plan to address problem: Left lower lobe pneumonia continue empiric treatment antibiotics for now. Subjective Date of service: 08/25/20 Principal diagnosis: Pneumonia--rule out COVID-19 positive test (U07.1, COVID- 19) with Acute P Interval history: 65-year-old female with known history of hyperlipidemia presenting to the emergency room today complaining of cough congestion and also generalized fatigue.. She indicates she was diagnosed with COVID-19 about a week ago and since then she has been having continuous body aches and pain, exertional dyspnea and intermittent chest discomfort. Patient has been taking lqfo-zms-okzkfua acetaminophen without any improvement. She eventually contacted her primary care physician who encouraged her to report to the emergency room for further evaluation. Work-up in the emergency room today reveals a left upper lobe pneumonia. Alan t became slightly hypoxic with minimal exertion upon arrival in the emergency room. She has been started on empiric IV antibiotics and also placed on isolation precautions. Day #3 08/25/2020 Patient has pneumonia secondary to coronavirus which is positive Patient doing better today is not hypoxic. Patient doing well on room air at this time. No new concerns. Objective - Constitutional Vitals: Vital Signs - 12hr 08/24/20 08/25/20 22:27 04:31 Temperature 98.7 F 98.4 F Pulse Rate 80 86 Respiratory 18 20 Rate Blood Pressure 116/72 127/78 O2 Sat by Pulse 94 97 Oximetry General appearance: Present: no acute distress, well-nourished - EENT Eyes: PERRL, EOM intact ENT: hearing intact, clear oral mucosa Ears: bilateral: normal - Neck Neck: supple, normal ROM - Respiratory Respiratory effort: normal Respiratory: bilateral: CTA - Breasts Breasts: normal - Cardiovascular Rhythm: regular Heart Sounds: Present: S1 & S2. Absent: gallop, rub Extremities: pulses intact, No edema, normal color, Full ROM - Gastrointestinal General gastrointestinal: Present: soft, non-tender, non-distended, normal bowel sounds - Genitourinary Female genitourinary: normal - Integumentary Integumentary: clear, warm, dry - Musculoskeletal Musculoskeletal: 1, strength equal bilaterally - Neurologic Neurologic: moves all extremities - Psychiatric Psychiatric: memory intact, appropriate mood/affect, intact judgment & insight - Labs CBC & Chem 7: 08/24/20 07:20 08/24/20 07:20 Labs: Abnormal lab results 08/24/20 08/24/20 08/24/20 Range/Units 07:20 07:20 10:00 [place] % (Auto) 11.2 H (0.0-7.3) % Potassium 3.5 L D (3.6-5.0) mmol/L BUN 5 L (7-17) mg/dL POC Glucose (70-105) mg/dL Coronavirus (PCR) Positive A (Negative) 08/24/20 08/24/20 Range/Units 12:22 22:43 [place] % (Auto) (0.0-7.3) % Potassium (3.6-5.0) mmol/L BUN (7-17) mg/dL POC Glucose 150 H 166 H (70-105) mg/dL Coronavirus (PCR) (Negative)
[2020-08-25 08:43] LABS: Alanine Aminotransferase 26 units/L (7-56); Albumin 4.1 g/dL (3.9-5)
[2020-08-25 08:44] LABS: Bilirubin,Direct < 0.2 mg/dL (0-0.2)
[2020-08-25] MEDS: DEXAMETHASONE 4 MG TAB PO SCH (10:34)
[2020-08-25] MEDS: PROMETHAZINE/CODEINE 6.25-10 MG ORAL LIQD 5 ML PO PRN (11:55)
--- NOTE | 2020-08-25 13:38 | Progress Note ---
Assessment and Plan Cultures: None A/P: 65 yo F PMHx HLD admitted with hypoxia secondary to COVID PNA. #Acute hypoxemic respiratory failure: Likely secondary to COVID-19 infection. Currently on nasal cannula #COVID-19 pneumonia: Patient presented with a week of symptoms, chest x-ray with LLL infiltrate. Recs: -Continue Dexamethasone 6 mg IV/PO daily for 10 days -Remdesivir 200 mg IV q day x 1 followed by 100 mg IV q day x 4 days. Patient verbally consented. CrCl>30. Pharmacy notified. Monitor renal and hepatic function. 2 of 5. -Obtain q48h inflammatory markers - ferritin, Ddimer, CRP, LDH -Anticoagulation per hospital protocol -Proning as able Thank you for the consult, we will continue to follow. Dr. Anna taking over tomorrow. Albina Medley MD [facility] ([facility]) O: [phone] F: [phone] Subjective Date of service: 08/25/20 Principal diagnosis: Pneumonia--rule out COVID-19 positive test (U07.1, COVID- 19) with Acute P Interval history: Afebrile for last 24 hours. No acute changes at present. Denies any new complaints worsening shortness of breath, nausea, vomiting, diarrhea. Objective - Exam Narrative Exam: Physical exam deferred due to PPE conservation strategy. Please refer to primary team's note. - Constitutional Vitals: Vital Signs Temp Pulse Resp BP Pulse Ox 98.3 F 86 17 135/75 99 08/25/20 11:05 08/25/20 11:05 08/25/20 11:05 08/25/20 11:05 08/25/20 11:05 Temperature -Last 24 Hours Temperature 98.3 F Temperature 98.4 F Temperature 98.7 F Temperature 99.9 F - Labs CBC & Chem 7: 08/24/20 07:20 08/24/20 07:20 Labs: Abnormal lab results 08/24/20 08/24/20 08/25/20 Range/Units 10:00 22:43 08:07 POC Glucose 166 H 109 H (70-105) mg/dL Coronavirus (PCR) Positive A (Negative) 08/25/20 Range/Units 11:24 POC Glucose 224 H (70-105) mg/dL Coronavirus (PCR) (Negative)
[2020-08-25] MEDS ORDERED: REMDESIVIR 100 MG in SODIUM CHLORIDE 0.9% 250ML 250 ML IV SCH (21:00)
[2020-08-25] MEDS: ENOXAPARIN 40 MG/0.4 ML INJ SUB-Q SCH (21:06)
[2020-08-25] MEDS: SODIUM CHLORIDE 0.9% 50 ML IVPB IV SCH (21:06)
[2020-08-26] MEDS: PROMETHAZINE/CODEINE 6.25-10 MG ORAL LIQD 5 ML PO PRN ×2 (01:24→14:06)
[2020-08-26 06:59] VITALS: BP 134/71
[2020-08-26] MEDS: DEXAMETHASONE 4 MG TAB PO SCH (09:15)
[2020-08-26] MEDS ORDERED: metFORMIN 500 MG TAB PO SCH (11:00)
--- NOTE | 2020-08-26 13:56 | Discharge Summary ---
Providers - Providers Date of Admission: 08/23/20 22:31 Date of discharge: 08/26/20 Attending physician: LUX DE LA PAZ 08/23/20 23:24 Consult to Physician [CONS] Routine Comment: Consulting Provider: ADRIANNE STORM Physician Instructions: Reason For Exam: PNEUMONIA, COVID 19 VE+ [facility] Condition: Stable Pertinent studies: Chest x-ray shows the development of a left lower lobe pneumonia. Patient had positive serology for COVID-19 Hospital course: 65-year-old female with known history of hyperlipidemia presenting to the emergency room today complaining of cough congestion and also generalized fatigue.. She indicates she was diagnosed with COVID-19 about a week ago and since then she has been having continuous body aches and pain, exertional dyspnea and intermittent chest discomfort. Patient has been taking toam-bnh-upymmdn acetaminophen without any improvement. She eventually contacted her primary care physician who encouraged her to report to the emergency room for further evaluation. Work-up in the emergency room today reveals a left upper lobe pneumonia. Patient became slightly hypoxic with minimal exertion upon arrival in the emergency room. She was found to be positive for COVID-19 pneumonia. Patient hospital stay was complicated by cough. Patient was started on dexamethasone, remdesivir. Patient was not hypoxemic and was able to speak in full sentences without any shortness of breath hypoxemia. Patient is on room air. No fever. Generalized weakness and cough only. Cough is controlled by Phenergan with codeine. Patient has good environment to continue quarantine. Patient is on day 12 of 14 days. Has generalized weakness will complete the 10 days of dexamethasone. Patient can return to work after that which is September 06.. Disposition: DC-01 TO HOME OR SELFCARE - Discharge Diagnoses (1) Diabetes Status: Acute Comment: Hospital was complicated by uncontrolled diabetes. This was secondary to steroid use with dexamethasone. Otherwise been very well controlled A1c has been 5.8. No new changes in management. Continue Glucophage upon discharge. (2) COVID-19 Status: Acute Comment: COVID-19 pneumonia. Patient does does not need home O2 she has been afebrile throughout hospital stay without use of Tylenol. She is has regained most of her strength. D-dimer is only 200. Should not require Eliquis. Patient also is 12 days out from her positive test. We will continue to quarantine for an additional 4 days. Complete dexamethasone as written. (3) Full code status Status: Acute (4) Hypoxemia Status: Acute Comment: Secondary to COVID-19 pneumonia has resolved. (5) Pneumonia Status: Acute Core Measure Documentation - Palliative Care Palliative Care/ Comfort Measures: Not Applicable - Core Measures Any of the following diagnoses?: none - VTE Discharge Requirements Deep Vein Thrombosis/Pulmonary Embolism Present on Admission: No Exam - Constitutional Vitals: Temp Pulse Resp BP Pulse Ox 99.0 F 73 18 134/71 97 08/26/20 05:35 08/26/20 05:35 08/26/20 05:35 08/26/20 05:35 08/26/20 09:00 General appearance: Present: no acute distress, well-nourished - EENT Eyes: Present: PERRL ENT: hearing intact, clear oral mucosa - Neck Neck: Present: supple, normal ROM - Respiratory Respiratory effort: normal Respiratory: bilateral: CTA - Cardiovascular Heart Sounds: Present: S1 & S2. Absent: rub, click - Extremities Extremities: pulses symmetrical, No edema Peripheral Pulses: within normal limits - Abdominal General gastrointestinal: Present: soft, non-tender, non-distended, normal bowel sounds Female genitourinary: Present: normal - Integumentary Integumentary: Present: clear, warm, dry - Musculoskeletal Musculoskeletal: gait normal, strength equal bilaterally - Psychiatric Psychiatric: appropriate mood/affect, intact judgment & insight - Neurologic Neurologic: CNII-XII intact, moves all extremities Plan Activity: no restrictions Weight Bearing Status: Full Weight Bearing Diet: diabetic Follow up with: NEENA COOPER MD [Primary Care Provider] - 3-5 Days Prescriptions: dexAMETHasone [Decadron] 6 mg PO DAILY #7 tablet Promethazine /Codeine [Phenergan/Codeine 6.25-10 mg/5 ml] 5 ml PO Q8H PRN #1 oral.liqd PRN Reason: Cough
[2020-08-26] MEDS ORDERED: REMDESIVIR 100 MG in SODIUM CHLORIDE 0.9% 250ML 250 ML IV SCH (16:00)
== END 2020-08-26 18:13 | disposition home or self-care (01) | DRG 177 ==
LOC: ED 20:05 → MERGE 22:31 → 3A 22:31
PROVIDERS: ADMIT Internal Medicine Geriatric Medicine; ATTEND Internal Medicine
PROC: XW033E5 Introduction of Remdesivir Anti-infective into Peripheral Vein, Percutaneous Approach, New Technology Group 5 (ICD-10-PCS; principal; 2020-08-25)
DX: U07.1 COVID-19 (principal); J12.89 Other viral pneumonia; J96.01 Acute respiratory failure with hypoxia; Z90.49 Acquired absence of other specified parts of digestive tract; Z98.51 Tubal ligation status
CPT/HCPCS: 36415; 71045; 80048; 80076; 82728; 82947; 82962; 83615; 84145; 85025; 85379; 85610; 86140; 96374; 96375; G0378; J0456; J0696; J1650; J7030; J7050; J8540; U0003

== ENCOUNTER 2021-01-18 14:48 | Outpatient (CLI) | payer BC ==
[2021-01-18 15:13] LABS: Basophils % (Auto) 0.5 % (0.0-1.8); Eosinophils # (Auto) 0.1 K/mm3 (0.0-0.4); Eosinophils % (Auto) 1.8 % (0.0-4.3); Hematocrit 38.9 % (30.3-42.9); Hemoglobin 13.2 gm/dl (10.1-14.3); Lymphocytes # (Auto) 2.1 K/mm3 (1.2-5.4); Lymphocytes % (Auto) 28.2 % (13.4-35.0); Mean Corpuscular HGB Conc 34 % (30-34); Mean Corpuscular Volume 85 fl (79-97); Monocytes # (Auto) 0.6 K/mm3 (0.0-0.8); Monocytes % (Auto) 8.2 % (0.0-7.3); Platelet Count 237 K/mm3 (140-440); Red Cell Distribution Width 13.4 % (13.2-15.2)
[2021-01-18 15:15] LABS: Bilirubin,Urine NEG (Negative); Blood,Urine NEG (Negative); Color,Urine Yellow (Yellow); Mucus,Urine FEW /HPF; Protein,Urine <15 mg/dL mg/dL (Negative); Urobilinogen,Urine < 2.0 mg/dL (<2.0)
[2021-01-18 15:43] LABS: Alanine Aminotransferase 16 units/L (7-56); Albumin 4.3 g/dL (3.9-5); Blood Urea Nitrogen 12 mg/dL (7-17); Calcium 9.5 mg/dL (8.4-10.2); Chol/HDL Ratio 3.33 %; HDL Cholesterol 51 mg/dL (40-59); Hemolysis Index 11; LDL Cholesterol,Direct 109 mg/dL (50-130)
[2021-01-18 15:51] LABS: BUN/Creatinine Ratio 24
[2021-01-18 15:54] LABS: Creatinine,Urine 93.2 mg/dL (0.1-20.0)
[2021-01-18 15:59] LABS: Microalbumin/Creatinine Ratio 12.8 ug/mg
== END 2021-01-18 14:49 | disposition home or self-care (01) ==
LOC: LAB 14:48
PROVIDERS: ATTEND Internal Medicine
DX: Z13.0 Encounter for screening for diseases of the blood and blood-forming organs and certain disorders involving the immune mechanism (principal); E78.2 Mixed hyperlipidemia; E11.9 Type 2 diabetes mellitus without complications; E55.9 Vitamin D deficiency, unspecified; M85.88 Other specified disorders of bone density and structure, other site
CPT/HCPCS: 36415; 80053; 80061; 81001; 82043; 82270; 82306; 83036; 85025

== ENCOUNTER 2021-02-28 09:58 | Outpatient (CLI) | payer BC | END 2021-02-28 09:59 | disposition home or self-care (01) | LOC: SPVWC 09:58 | PROVIDERS: ATTEND Surgery | DX: Z12.31 Encounter for screening mammogram for malignant neoplasm of breast (principal) | CPT/HCPCS: 77063; 77067 ==

== ENCOUNTER 2021-09-03 09:27 | Outpatient (CLI) | payer BC ==
[2021-09-03 10:28] LABS: Alanine Aminotransferase 19 units/L (7-56); Albumin 4.6 g/dL (3.9-5); BUN/Creatinine Ratio 22; Blood Urea Nitrogen 11 mg/dL (7-17); Hemolysis Index 11
== END 2021-09-03 09:28 | disposition home or self-care (01) ==
LOC: LAB 09:27
PROVIDERS: ATTEND Internal Medicine
DX: E11.9 Type 2 diabetes mellitus without complications (principal); E55.9 Vitamin D deficiency, unspecified; E78.2 Mixed hyperlipidemia
CPT/HCPCS: 36415; 80053; 82306; 83036

== ENCOUNTER 2022-01-21 10:36 | Outpatient (CLI) | payer BC ==
--- NOTE | 2022-01-21 13:36 | Mammography Report ---
DEXA BONE DENSITY SCAN INDICATION / CLINICAL INFORMATION: OSTEOPOROSIS. 66 years Female COMPARISON: 08/12/2019 LUMBAR SPINE, L1-L4: - Bone mineral density (BMD) = 0.786 g/cm2. - T-score = -2.4 - Change (%) since most recent prior (if available): -0.5 LEFT HIP, NECK : - Bone mineral density (BMD) = 0.679 g/cm2. - T-score = -1.5 - Change (%) since most recent prior (if available): -1.8 IMPRESSION: 1. WHO Classification: Osteopenia. Fracture Risk: Increased. 2. 10-Year Fracture Risk (FRAX) = Major Osteoporotic 4.0% / Hip: 0.4% FRAX generally not reported for patients with normal or osteoporotic BMD, in fox-ohifdou-incmkop rex ents younger than age 50, or in patients undergoing pharmacotherapy BMD Reporting Guidelines (ISCD, 2015) BMD Reporting in Postmenopausal Women and in Men Age 50 and Older - T-scores are preferred. - The WHO densitometric classification is applicable. BMD Reporting in Females Prior to Menopause and in Males Younger Than Age 50 - Z-scores, not T-scores, are preferred. This is particularly important in children. - A Z-score of -2.0 or lower is defined as below the expected range for age, and a Z-score above -2.0 is within the expected range for age. - Osteoporosis cannot be diagnosed in men under age 50 on the basis of BMD alone. - The WHO diagnostic criteria may be applied to women in the menopausal transition. http://www.iscd.org/official-positions/1232-oqqs-zhonlqru-positions-adult/ Signer Name: Colleen Galan MD Signed: 01/21/2022 1:32 PM Workstation Name: [id number]
== END 2022-01-21 10:37 | disposition home or self-care (01) ==
LOC: MAMMO 10:36
PROVIDERS: ATTEND Internal Medicine
DX: M85.88 Other specified disorders of bone density and structure, other site (principal)
CPT/HCPCS: 77080

== ENCOUNTER 2022-02-15 08:44 | Outpatient (CLI) | payer BC ==
[2022-02-15 09:52] LABS: Alanine Aminotransferase 14 units/L (7-56); Albumin 4.3 g/dL (3.9-5); Blood Urea Nitrogen 11 mg/dL (7-17); Calcium 9.9 mg/dL (8.4-10.2); Chol/HDL Ratio 3.53 %; HDL Cholesterol 54 mg/dL (40-59); Hemolysis Index 2; LDL Cholesterol,Direct 115 mg/dL (50-130)
[2022-02-15 09:57] LABS: BUN/Creatinine Ratio 18
[2022-02-15 10:34] LABS: Basophils % (Auto) 0.6 % (0.0-1.8); Eosinophils # (Auto) 0.1 K/mm3 (0.0-0.4); Eosinophils % (Auto) 1.6 % (0.0-4.3); Hematocrit 38.6 % (30.3-42.9); Hemoglobin 12.8 gm/dl (10.1-14.3); Lymphocytes # (Auto) 1.7 K/mm3 (1.2-5.4); Lymphocytes % (Auto) 27.5 % (13.4-35.0); Mean Corpuscular HGB Conc 33 % (30-34); Mean Corpuscular Volume 86 fl (79-97); Monocytes # (Auto) 0.5 K/mm3 (0.0-0.8); Monocytes % (Auto) 7.5 % (0.0-7.3); Platelet Count 216 K/mm3 (140-440); Red Blood Count 4.46 M/mm3 (3.65-5.03); Red Cell Distribution Width 13.3 % (13.2-15.2)
[2022-02-15 12:38] LABS: Creatinine,Urine 74.1 mg/dL (0.1-20.0)
[2022-02-15 12:41] LABS: Microalbumin/Creatinine Ratio 16.1 ug/mg
[2022-02-15 13:47] LABS: Erythrocyte Sedimentation Rate 23 mm/Hr (0-20)
[2022-02-19 13:32] LABS: Vitamin D, 25-OH, D2 4 ng/mL
[2022-02-19 18:04] LABS: Albumin 4.3 g/dL (3.8-4.8)
== END 2022-02-15 08:45 | disposition home or self-care (01) ==
LOC: LAB 08:44
PROVIDERS: ATTEND Internal Medicine
DX: Z11.0 Encounter for screening for intestinal infectious diseases (principal); E78.2 Mixed hyperlipidemia; M54.2 Cervicalgia; M54.50 Low back pain, unspecified; G89.29 Other chronic pain; R79.89 Other specified abnormal findings of blood chemistry
CPT/HCPCS: 36415; 80053; 80061; 82043; 82306; 84165; 85025; 85652; 86140; 86334; 86812

== ENCOUNTER 2022-03-28 11:59 | Outpatient (CLI) | payer BC ==
--- NOTE | 2022-03-28 14:43 | Mammography Report ---
DIGITAL SCREENING MAMMOGRAM WITH CAD, 03/28/2022 CLINICAL INFORMATION / INDICATION: Routine screening mammography. Z12.31 TECHNIQUE: Digital bilateral 2D mammography was obtained in the craniocaudal and mediolateral obliqu e projections. This examination was interpreted with the benefit of Computer-Aided Detection analysis . COMPARISON: 01/25/2013 through 02/28/2021. FINDINGS: Breast Density: The breasts are heterogeneously dense, which may obscure small masses. No dominant mass, suspicious calcifications, or architectural distortion in either breast. No significant change in right breast calcifications over serial exams. IMPRESSION: No mammographic evidence of malignancy. Follow up recommendation: Routine yearly screening mammogram. BI-RADS Category 2: BENIGN. A "normal" or negative report should not discourage follow up or biopsy of a clinically significant f inding. A written summary of these findings will be mailed to the patient. The patient will be entered into a mammography reporting system which will generate a reminder letter for the patient's next appointmen t at the appropriate interval. The [place] [employer] recommends yearly mammograms starting at age 40 and continuing as l tereza as a woman is in good health. Breast MRI is recommended for women with an approximate 20-25% or greater lifetime risk of breast cancer, including women with a strong family history of breast or ova caprice cancer or who have been treated for Hodgkin's disease. Signer Name: Kalia Farrar MD Signed: 03/28/2022 2:38 PM Workstation Name: [employer]
== END 2022-03-28 12:00 | disposition home or self-care (01) ==
LOC: MAMMO 11:59
PROVIDERS: ATTEND Internal Medicine
DX: Z12.31 Encounter for screening mammogram for malignant neoplasm of breast (principal); Z01.419 Encounter for gynecological examination (general) (routine) without abnormal findings; Z11.2 Encounter for screening for other bacterial diseases; Z11.3 Encounter for screening for infections with a predominantly sexual mode of transmission
CPT/HCPCS: 36415; 77067

== ENCOUNTER 2022-07-09 06:45 | Day surgery (SDC) | payer BC ==
[2022-07-09] MEDS ORDERED: SODIUM CHLORIDE 0.9% 1000 ML 1,000 ML IV SCH (07:00)
--- NOTE | 2022-07-09 07:37 | Anesthesia Consultation ---
Anesthesia Consult and Med Hx Date of service: 07/09/22 - Airway Anesthetic Teeth Evaluation: Good, Bridges ROM Head & Neck: Adequate Mental/Hyoid Distance: Adequate Mallampati Class: Class II Intubation Access Assessment: Probably Good - Pulmonary Exam CTA: Yes - Cardiac Exam Cardiac Exam: RRR - Pre-Operative Health Status ASA Pre-Surgery Classification: ASA2 Proposed Anesthetic Plan: MAC - Pulmonary Hx Smoking: No Hx Asthma: No Hx Sleep Apnea: No - Cardiovascular System Hx Hypertension: No (HLD) Hx Coronary Artery Disease: No - Central Nervous System Hx Seizures: No CVA: No - Gastrointestinal Hx Gastroesophageal Reflux Disease: No - Endocrine Hx Renal Disease: No Hx Cirrhosis: No Hx Non-Insulin Dependent Diabetes: Yes ("prediabetes" - takes Metformin) Hx Thyroid Disease: No - Hematic Hx Anemia: No - Other Systems Hx Alcohol Use: No Hx Substance Use: No Hx Cancer: No Hx Obesity: No - Additional Comments Anesthesia Medical History Comments: no hx of anesthetic complications
--- NOTE | 2022-07-09 07:38 | Anesthesia Day of Surgery ---
Anesthesia Day of Surgery - Day of Surgery Patient Examined: Yes Patient H&P Reviewed: Yes Patient is NPO: Yes
[2022-07-09] MEDS ORDERED: propofoL 200 MG/20 ML VIAL IV ONE (07:39)
--- NOTE | 2022-07-09 09:21 | Short Stay Summary ---
Short Stay Documentation Date of service: 07/09/22 Narrative H&P: The patient presents for surveillance colonoscopy for hx polyps. Last study was over 5 years ago. - History Past Medical History: diabetes, hyperlipidemia Past Surgical History: appendectomy Social history: no significant social history - Allergies and Medications Current Medications: Allergies No Known Allergies Allergy (Verified 07/05/22 15:45) Home Medications Medication Instructions Recorded Confirmed Last Taken Type Simvastatin (NF) [Zocor TAB] 40 mg PO DAILY 04/15/16 04/15/16 04/13/16 History Vit D3/Folic Acid/B2/B6/B12 1 PO 04/15/16 04/13/16 History [Folgard Tablet] metFORMIN [Glucophage] 500 mg PO QDAY 04/15/16 04/15/16 04/13/16 History Simvastatin 40 mg PO QHS 08/24/20 08/24/20 Unknown History metFORMIN [Glucophage] 500 mg PO QDAY 08/24/20 08/24/20 Unknown History Acetaminophen [Acetaminophen TAB] 650 mg PO Q4H PRN tablet 08/26/20 Unknown Rx Promethazine /Codeine 5 ml PO Q8H PRN #1 oral.liqd 08/26/20 Unknown Rx [Phenergan/Codeine 6.25-10 mg/5 ml] dexAMETHasone [Decadron] 6 mg PO DAILY #7 tablet 08/26/20 Unknown Rx Active Medications Sodium Chloride (Nacl 0.9% 1000 Ml) 1,000 mls @ 50 mls/hr IV DIRECT MAYNOR - Physical exam General appearance: no acute distress, well-nourished Integumentary: no rash, no growths, no abnormal pigmentation HEENT: Atraumatic, PERRLA, EOMI, Mucous membr. moist/pink Lungs: Normal air movement Breasts: deferred Heart: Regular rate, Normal S1, Normal S2, No murmurs Gastrointestinal: normoactive bowel sounds, no tenderness, no distended, no masses, no guarding, no obese Female Genitourinary: deferred Rectal Exam: normal exam-external/orifice, normal rectal tone, no mass Extremities: no ischemia, pulses intact, pulses symmetrical, No edema, normal temperature, normal color, Full ROM Neurological: Normal gait, Normal speech, Strength at 5/5 X4 ext, Normal tone, Sensation intact, Cranial nerves 3-12 NL - Brief post op/procedure progress note Date of procedure: 07/09/22 Findings: see dictation Estimated blood loss: none Pathology: none Condition: stable - Disposition Condition at discharge: Good Disposition: 01 HOME / SELF CARE / HOMELESS - Discharge Diagnoses (1) Personal history of colonic polyps Status: Acute Short Stay Discharge Plan Activity: other (no driving for 24 hours) Weight Bearing Status: Full Weight Bearing Diet: diabetic Follow up with: Asya JOSEPH MD [Primary Care Provider] - 7 Days
--- NOTE | 2022-07-09 09:25 | Operative Report ---
Operative Report Operative Report: Date of procedure: 07/09/2022 Preprocedure diagnosis: History of colon polyps. Last study over 5 years ago Post procedure diagnosis: Right colon diverticulosis. No recurrent polyps. Procedure: Colonoscopy to the cecum Endoscopist: Dr. Escalante Anesthesia: Monitored anesthesia care per anesthesia department Estimated blood loss: 0 Medications: Monitored anesthesia care. See separate report by anesthesia for details. After careful discussion of the nature and purpose of the procedure as well as details of the technique risks benefits and alternatives the patient gave consent. Please see recent history and physical from the office. The patient was placed in the left lateral decubitus position and medicated per anesthesia. A rectal exam was performed sphincter tone was normal there were no masses palpable. The [employer] 570 scope was passed transanally and advanced under continuous di rect vision without difficulty to the cecum. The colon was well prepared. The cecum revealed scattered diverticula. The ascending colon revealed scattered diverticula. The transverse colon, descending colon, and sigmoid colon were normal. The rectum was normal on forward and retroflexed views. The procedure was well-tolerated overall and the patient was observed in recovery. Conclusions: Right colon diverticulosis, otherwise normal colonoscopy to the cecum. No recurrent polyps. Plan: Repeat colonoscopy in 5 to 7 years. Signed electronically: Warren Escalante M.D.
[2022-07-09 10:01] VITALS: BP 125/63
--- NOTE | 2022-07-09 16:04 | Post Anesthesia Evaluation ---
- Post Anesthesia Evaluation Patient Participated: Yes Airway Patent: Yes Stable Respiratory Function: Yes Nausea/Vomiting: No Temp > 96.8F: Yes Pain Manageable: Yes Adequeate Hydration: Yes Anesthesia Complications: No Block Receding Appropriately: Not Applicable Patient on Ventilator: No
== END 2022-07-09 10:05 | disposition home or self-care (01) ==
LOC: GIO 06:45
PROVIDERS: ATTEND Internal Medicine Gastroenterology
DX: Z12.11 Encounter for screening for malignant neoplasm of colon (principal); K57.30 Diverticulosis of large intestine without perforation or abscess without bleeding; E11.9 Type 2 diabetes mellitus without complications; Z90.49 Acquired absence of other specified parts of digestive tract; Z20.822 Contact with and (suspected) exposure to COVID-19; Z86.010 Personal history of colon polyps; Z79.899 Other long term (current) drug therapy; Z79.84 Long term (current) use of oral hypoglycemic drugs; Z87.01 Personal history of pneumonia (recurrent)
CPT/HCPCS: 45378; 82962; J2704; J7030